=== PATIENT | female | born 1960 | race Two or more races ===

== ENCOUNTER 2021-07-22 10:58 | Inpatient (IN) | payer MEDICAID ==
[~2021-07-22] VITALS: Ht 170.2 cm; Wt 73.2 kg
[~2021-07-22 10:58] MED LIST: ASPI81CH43; GEMF600T; GLIPPOW9; LISI-716; MET25T; METF-372 PO; NITROSTAT; PATANOL OP; ROSU40TA; TRAM50TA2; VITA-55; [UNRECOGNIZED DRUG - CODE]
[2021-07-22] MEDS ORDERED: ASPirin 81 mg TAB PO ONE (11:30)
[2021-07-22 12:08] LABS: Basophils # (auto) 0 10 ^3/uL (0-0.2); Basophils % (auto) 0.5 % (0.0-2.0); Eosinophils # (auto) 0.1 10 ^3/uL (0-0.8); Eosinophils % (auto) 1.6 % (0.0-7.0); Hematocrit 35.7 % (36.0-46.0); Hemoglobin 11.8 g/dL (12.2-16.2); Lymphocytes # (auto) 1.9 10 ^3/uL (0.4-5.4); Lymphocytes % (auto) 22.1 % (10.0-50.0); Mean Corpuscular Hemoglobin 27.4 pg (28.0-32.0); Mean Corpuscular Volume 82.9 fL (80.0-100.0); Monocytes # (auto) 0.5 10 ^3/uL (0-1.3); Monocytes % (auto) 6.1 % (0.0-12.0); Neutrophils # (auto) 5.8 10 ^3/uL (1.6-8.6); Neutrophils % (auto) 69.7 % (37.0-80.0); Red Blood Cells 4.31 10^6/uL (4.0-5.20); Red Cell Distribution Width 14.9 % (11.8-14.3); White Blood Cell 8.4 10^3/uL (4.4-10.8)
[2021-07-22 12:25] LABS: Albumin 3.3 g/dL (3.4-5.0); Anion Gap 6 (5-15); Blood Urea Nitrogen 12 mg/dL (7-18); Calcium 9.1 mg/dL (8.5-10.1); Carbon Dioxide 26 mmol/L (21-32); Chloride 100 mmol/L (98-107); Glucose 242 mg/dL (74-106); Magnesium 1.8 mg/dL (1.6-2.6); Potassium 4.2 mmol/L (3.5-5.1); Sodium 132 mmol/L (136-145)
[2021-07-22 12:31] LABS: Alanine Aminotransferase 26 U/L (13-56); Alkaline Phosphatase 100 U/L (45-117); Aspartate Aminotransferase 20 U/L (15-37); BUN/Creatinine Ratio 15.4; Bilirubin, Total 0.3 mg/dL (0.2-1.0); GFR African American 97 mL/min; GFR Non-African American 80 mL/min; Total Protein 8.3 g/dL (6.4-8.2)
[2021-07-22] MEDS ORDERED: MORPHINE SULFATE INJECTION 2 MG/ML SYRG IV PRN ×3 (13:00→16:15)
[2021-07-22] MEDS ORDERED: NITROGLYCERIN 0.4 MG SL TAB SL PRN ×2 (13:00→16:15)
[2021-07-22] MEDS ORDERED: ISOS1TAB28 PO (14:31)
[2021-07-22] MEDS ORDERED: GLIP10TA9 PO (14:31)
[2021-07-22] MEDS ORDERED: CLOP75TA70 PO (14:31)
[2021-07-22] MEDS ORDERED: GABA300C10 PO (14:31)
[2021-07-22] MEDS ORDERED: ERTU5TAB PO (14:31)
[2021-07-22] MEDS ORDERED: MONT-8 PO (14:31)
[2021-07-22] MEDS ORDERED: LOSA-69 PO (14:31)
[2021-07-22] MEDS ORDERED: PANT40T PO (14:31)
[2021-07-22] MEDS ORDERED: NIFE1TAB31 PO (14:31)
[2021-07-22] MEDS ORDERED: DULA1INJ SC (14:31)
[2021-07-22] MEDS ORDERED: METOPROLOL TARTRATE 25 MG TAB PO ONE (15:45)
[2021-07-22] MEDS ORDERED: ATORVASTATIN 20 MG TAB PO ONE (15:45)
[2021-07-22] MEDS ORDERED: SODIUM CHLORIDE 0.9% 1,000 ML IV ONE (15:45)
[2021-07-22] MEDS ORDERED: MAGNESIUM SULFATE 1GM/100ML 100 ML IV ONE (15:45)
[2021-07-22] MEDS ORDERED: diphenhdrAMINE HCL 25 MG CAP PO ONE (16:00)
[2021-07-22] MEDS ORDERED: DEXTROSE (50%) 50ML SYRG IV PRN (16:00)
[2021-07-22] MEDS ORDERED: MONTELUKAST SODIUM 10 MG TAB PO ONE (16:00)
[2021-07-22] MEDS ORDERED: LORATADINE 10 MG TAB PO ONE (16:00)
[2021-07-22] MEDS ORDERED: ALUM & MAG HYDROX-SIMETH LIQ(MAALOX) 30 ML PO PRN (16:15)
[2021-07-22] MEDS ORDERED: DOCUSATE SOD 100 MG CAP PO PRN (16:15)
[2021-07-22] MEDS ORDERED: ONDANSETRON HCL 4 MG/2 ML VIAL IV PRN (16:15)
[2021-07-22 16:28] LABS: % Iron Saturation 11.5 % (15-50)
[2021-07-22 16:43] LABS: Folate (Folic Acid) > 24.00 ng/mL (5.38-24)
[2021-07-22] MEDS: ACCU-CHEK COMFORT CURVE STRIP VI SCH ×2 (17:00→22:00)
[2021-07-22] MEDS: InsuLIN REG 1unit/0.01ml Soln (100units/ml) SC SCH ×2 (17:00→22:00)
[2021-07-22] MEDS ORDERED: IPRATROPIUM BROM 0.5 MG/2.5ML INH SOL NEB SCH (18:00)
[2021-07-22] MEDS ORDERED: ACETAMINOPHEN 500 MG TAB PO ONE (18:00)
[2021-07-22] MEDS: FUROSEMIDE 20 MG/2 ML VIAL IV SCH (19:58)
[2021-07-22] MEDS: FAMOTIDINE (10MG/ML) 2ML VL IV SCH (21:23)
[2021-07-22] MEDS: POTASSIUM CHL 10 Meq TABLET PO SCH (22:00)
[2021-07-22] MEDS ORDERED: PENTOXIFYLLINE 400 MG ER TAB PO SCH (22:00)
[2021-07-22] MEDS: METOPROLOL TARTRATE 25 MG TAB PO SCH (22:00)
[2021-07-22] MEDS: CILOSTAZOL 100 MG TAB PO SCH (22:00)
[2021-07-22] MEDS: PENTOXIFYLLINE 400 MG ER TAB PO SCH (22:00)
[2021-07-22] MEDS: HYDROcodone-ACET 5/325MG TAB PO PRN (23:00)
[2021-07-23 00:47] LABS: Urine Bacteria NONE SEEN /hpf (None Seen); Urine Blood Negative /uL (Negative); Urine Hyaline Cast FEW /lpf (0 - 2); Urine Specific Gravity 1.005 (1.001-1.035); Urine WBC <1 /hpf (0 - 5)
[2021-07-23 00:56] LABS: Alcohol, Urine < 3.0 mg/dL (0-10); Amphetamine Screen, Urine NEGATIVE (NEGATIVE); Barbiturate Scree,Urine NEGATIVE (NEGATIVE); Benzodiazephine Screen, Urine NEGATIVE (NEGATIVE); Cannabinoid Screen, Urine NEGATIVE (NEGATIVE); Cocaine Screen, Urine NEGATIVE (NEGATIVE); Opiate Scree,Urine NEGATIVE (NEGATIVE); Phencyclidine Screen, Urine NEGATIVE (NEGATIVE)
[2021-07-23] MEDS: ACCU-CHEK COMFORT CURVE STRIP VI SCH ×3 (06:24→22:00)
[2021-07-23] MEDS: PENTOXIFYLLINE 400 MG ER TAB PO SCH ×3 (06:31→22:48)
[2021-07-23] MEDS: FUROSEMIDE 20 MG/2 ML VIAL IV SCH (06:31)
[2021-07-23] MEDS: InsuLIN REG 1unit/0.01ml Soln (100units/ml) SC SCH ×5 (06:33→22:00)
[2021-07-23 06:37] LABS: Basophils # (auto) 0 10 ^3/uL (0-0.2); Basophils % (auto) 0.4 % (0.0-2.0); Eosinophils # (auto) 0.1 10 ^3/uL (0-0.8); Eosinophils % (auto) 2.1 % (0.0-7.0); Hematocrit 33.1 % (36.0-46.0); Hemoglobin 11.1 g/dL (12.2-16.2); Lymphocytes # (auto) 2.8 10 ^3/uL (0.4-5.4); Lymphocytes % (auto) 42.8 % (10.0-50.0); Mean Corpuscular Hemoglobin 27.7 pg (28.0-32.0); Mean Corpuscular Hgb Conc. 33.4 g/dL (32.0-36.0); Monocytes # (auto) 0.5 10 ^3/uL (0-1.3); Monocytes % (auto) 7.1 % (0.0-12.0); Neutrophils # (auto) 3.1 10 ^3/uL (1.6-8.6); Neutrophils % (auto) 47.6 % (37.0-80.0); Red Blood Cells 3.99 10^6/uL (4.0-5.20); Red Cell Distribution Width 14.7 % (11.8-14.3); White Blood Cell 6.4 10^3/uL (4.4-10.8)
[2021-07-23] MEDS: HYDROcodone-ACET 5/325MG TAB PO PRN (06:42)
[2021-07-23 06:45] LABS: INR 1.02 (0.9-1.15); Partial Thromboplastin Time 25.5 sec (23.6-33.0)
[2021-07-23 06:46] LABS: Chloride 103 mmol/L (98-107); Potassium 3.8 mmol/L (3.5-5.1); Sodium 138 mmol/L (136-145)
[2021-07-23 07:03] LABS: Alanine Aminotransferase 24 U/L (13-56); Alkaline Phosphatase 89 U/L (45-117); Anion Gap 5 (5-15); Aspartate Aminotransferase 16 U/L (15-37); BUN/Creatinine Ratio 19.4; Bilirubin, Total 0.3 mg/dL (0.2-1.0); Blood Urea Nitrogen 14 mg/dL (7-18); Calcium 8.9 mg/dL (8.5-10.1); Carbon Dioxide 30 mmol/L (21-32); GFR African American 106 mL/min; GFR Non-African American 88 mL/min; Glucose 177 mg/dL (74-106); Magnesium 1.9 mg/dL (1.6-2.6); Total Protein 7.6 g/dL (6.4-8.2)
[2021-07-23] MEDS: ISOSORBIDE MONONITRATE ER 60 MG TAB PO SCH (10:00)
[2021-07-23] MEDS: METOPROLOL TARTRATE 25 MG TAB PO SCH (10:00)
[2021-07-23] MEDS: CILOSTAZOL 100 MG TAB PO SCH ×2 (10:00→22:48)
[2021-07-23] MEDS: LOSARTAN POTASSIUM 25 MG TAB PO SCH (10:00)
[2021-07-23] MEDS: FAMOTIDINE (10MG/ML) 2ML VL IV SCH (10:00)
[2021-07-23] MEDS: POTASSIUM CHL 10 Meq TABLET PO SCH (10:00)
[2021-07-23] MEDS: ASPirin 81 mg TAB PO SCH (10:00)
[2021-07-23] MEDS: ENOXAPARIN SOD 40 MG/0.4 ML SYRINGE SC SCH (10:00)
[2021-07-23] MEDS ORDERED: CLOPIDOGREL BISULFATE 75 MG TAB PO ONE (11:15)
[2021-07-23] MEDS: ACETAMINOPHEN 325 MG TAB PO PRN (17:54)
[2021-07-23 20:00] VITALS: BP 125/67
[2021-07-23] MEDS: ATORVASTATIN 20 MG TAB PO SCH (22:00)
[2021-07-23 22:12] VITALS: BP 125/67
[2021-07-23] MEDS: MONTELUKAST SODIUM 10 MG TAB PO SCH (22:48)
[2021-07-24] MEDS: ACETAMINOPHEN 325 MG TAB PO PRN ×3 (03:12→15:12)
[2021-07-24 05:12] VITALS: BP 134/54
[2021-07-24] MEDS: PENTOXIFYLLINE 400 MG ER TAB PO SCH ×3 (05:51→23:08)
[2021-07-24] MEDS: ACCU-CHEK COMFORT CURVE STRIP VI SCH ×4 (06:48→22:00)
[2021-07-24] MEDS: InsuLIN REG 1unit/0.01ml Soln (100units/ml) SC SCH ×5 (06:49→22:00)
[2021-07-24 08:00] VITALS: BP 134/54
[2021-07-24 09:00] VITALS: BP 129/68
[2021-07-24] MEDS: ASPirin 81 mg TAB PO SCH (10:05)
[2021-07-24] MEDS: LOSARTAN POTASSIUM 25 MG TAB PO SCH (10:07)
[2021-07-24] MEDS: ISOSORBIDE MONONITRATE ER 60 MG TAB PO SCH (10:08)
[2021-07-24] MEDS: CLOPIDOGREL BISULFATE 75 MG TAB PO SCH (10:08)
[2021-07-24] MEDS: CILOSTAZOL 100 MG TAB PO SCH ×2 (10:09→23:08)
[2021-07-24] MEDS: PANTOPRAZOLE 40 MG TAB PO SCH (10:09)
[2021-07-24] MEDS: ENOXAPARIN SOD 40 MG/0.4 ML SYRINGE SC SCH (10:10)
[2021-07-24] MEDS: glipiZIDE 5 MG TAB PO SCH ×2 (11:36→17:40)
[2021-07-24 17:06] VITALS: BP 135/56
[2021-07-24 20:00] VITALS: BP 137/62
[2021-07-24 22:00] VITALS: BP 137/62
[2021-07-24] MEDS: ATORVASTATIN 20 MG TAB PO SCH (22:00)
[2021-07-24] MEDS: MONTELUKAST SODIUM 10 MG TAB PO SCH (22:00)
[2021-07-25] MEDS: ACETAMINOPHEN 325 MG TAB PO PRN (01:41)
[2021-07-25] MEDS: LORazepam 0.5 MG TAB PO PRN (01:47)
[2021-07-25 05:00] VITALS: BP 131/51
[2021-07-25] MEDS: PENTOXIFYLLINE 400 MG ER TAB PO SCH ×3 (06:30→21:38)
[2021-07-25] MEDS: glipiZIDE 5 MG TAB PO SCH ×2 (06:37→17:24)
[2021-07-25] MEDS: ACCU-CHEK COMFORT CURVE STRIP VI SCH ×4 (06:37→21:40)
[2021-07-25] MEDS: InsuLIN REG 1unit/0.01ml Soln (100units/ml) SC SCH ×4 (06:37→21:48)
[2021-07-25 09:00] VITALS: BP 150/68
[2021-07-25] MEDS: ISOSORBIDE MONONITRATE ER 60 MG TAB PO SCH (10:00)
[2021-07-25] MEDS: ASPirin 81 mg TAB PO SCH (10:07)
[2021-07-25] MEDS: CLOPIDOGREL BISULFATE 75 MG TAB PO SCH (10:08)
[2021-07-25] MEDS: ENOXAPARIN SOD 40 MG/0.4 ML SYRINGE SC SCH (10:08)
[2021-07-25] MEDS: LOSARTAN POTASSIUM 25 MG TAB PO SCH (10:08)
[2021-07-25] MEDS: CILOSTAZOL 100 MG TAB PO SCH ×2 (10:08→21:38)
[2021-07-25] MEDS: PANTOPRAZOLE 40 MG TAB PO SCH (10:08)
[2021-07-25 13:00] VITALS: BP 125/57
[2021-07-25] MEDS ORDERED: ACETAMINOPHEN 325 MG TAB PO PRN (14:45)
[2021-07-25 17:00] VITALS: BP 120/64
[2021-07-25] MEDS: MONTELUKAST SODIUM 10 MG TAB PO SCH (21:33)
[2021-07-25] MEDS: ATORVASTATIN 20 MG TAB PO SCH (21:34)
[2021-07-25 22:00] VITALS: BP 137/61
[2021-07-25] MEDS: SODIUM CHLORIDE 0.9% 1,000 ML IV SCH (22:26)
[2021-07-26 05:00] VITALS: BP 148/70
[2021-07-26] MEDS: PENTOXIFYLLINE 400 MG ER TAB PO SCH ×3 (05:35→20:35)
[2021-07-26] MEDS: LEVOTHYROXINE SODIUM 25 MCG TAB PO SCH (05:35)
[2021-07-26] MEDS: glipiZIDE 5 MG TAB PO SCH ×2 (05:35→18:48)
[2021-07-26] MEDS: InsuLIN REG 1unit/0.01ml Soln (100units/ml) SC SCH ×4 (05:36→21:25)
[2021-07-26] MEDS: ACCU-CHEK COMFORT CURVE STRIP VI SCH ×4 (05:36→21:24)
[2021-07-26 07:52] LABS: Albumin 3.1 g/dL (3.4-5.0); Calcium 9.1 mg/dL (8.5-10.1); Potassium 3.7 mmol/L (3.5-5.1)
[2021-07-26 07:55] LABS: BUN/Creatinine Ratio 15.1; Bilirubin, Total 0.2 mg/dL (0.2-1.0); Total Protein 7.9 g/dL (6.4-8.2)
[2021-07-26 08:00] VITALS: BP 141/66
[2021-07-26 08:05] LABS: Basophils # (auto) 0 10 ^3/uL (0-0.2); Basophils % (auto) 0.6 % (0.0-2.0); Eosinophils # (auto) 0.1 10 ^3/uL (0-0.8); Eosinophils % (auto) 2.1 % (0.0-7.0); Hematocrit 35.4 % (36.0-46.0); Hemoglobin 11.7 g/dL (12.2-16.2); Lymphocytes # (auto) 2.6 10 ^3/uL (0.4-5.4); Lymphocytes % (auto) 48.7 % (10.0-50.0); Mean Corpuscular Hemoglobin 27.6 pg (28.0-32.0); Mean Corpuscular Hgb Conc. 33.1 g/dL (32.0-36.0); Mean Corpuscular Volume 83.4 fL (80.0-100.0); Monocytes # (auto) 0.4 10 ^3/uL (0-1.3); Monocytes % (auto) 6.9 % (0.0-12.0); Neutrophils # (auto) 2.2 10 ^3/uL (1.6-8.6); Neutrophils % (auto) 41.7 % (37.0-80.0); Red Blood Cells 4.24 10^6/uL (4.0-5.20); Red Cell Distribution Width 14.4 % (11.8-14.3); White Blood Cell 5.3 10^3/uL (4.4-10.8)
[2021-07-26] MEDS ORDERED: METOPROLOL SUCCINATE XL 50 MG TAB PO SCH (10:00)
[2021-07-26] MEDS: ENOXAPARIN SOD 40 MG/0.4 ML SYRINGE SC SCH (10:00)
[2021-07-26] MEDS: ASPirin 81 mg TAB PO SCH (10:19)
[2021-07-26] MEDS: PANTOPRAZOLE 40 MG TAB PO SCH (10:19)
[2021-07-26] MEDS: CLOPIDOGREL BISULFATE 75 MG TAB PO SCH (10:20)
[2021-07-26] MEDS: CILOSTAZOL 100 MG TAB PO SCH ×2 (10:20→20:35)
[2021-07-26] MEDS: LOSARTAN POTASSIUM 25 MG TAB PO SCH (10:21)
[2021-07-26] MEDS: ISOSORBIDE MONONITRATE ER 60 MG TAB PO SCH (10:22)
[2021-07-26 12:00] VITALS: BP 143/74
[2021-07-26 13:00] VITALS: BP 141/66
[2021-07-26 14:31] VITALS: BP 116/72
[2021-07-26] MEDS ORDERED: LIDOCAINE 2%HCL (LOCAL ANESTH.) INJ 20ML MDV ONE (15:41)
[2021-07-26] MEDS ORDERED: MIDAZOLAM HCL 2MG/2ML 2ml VIAL (1mg/ml) ONE (15:58)
[2021-07-26] MEDS ORDERED: fentaNYL CITRATE 100 MCG/2 ML VL ONE (15:59)
[2021-07-26] MEDS: SODIUM CHLORIDE 0.9% 1,000 ML IV SCH (18:33)
[2021-07-26] MEDS: MONTELUKAST SODIUM 10 MG TAB PO SCH (20:34)
[2021-07-26] MEDS: ATORVASTATIN 20 MG TAB PO SCH (20:34)
[2021-07-26] MEDS: LORazepam 0.5 MG TAB PO PRN (20:35)
[2021-07-26] MEDS: IBUPROFEN 400 MG TAB PO PRN (20:36)
[2021-07-26 22:00] VITALS: BP 134/72
[2021-07-27 05:00] VITALS: BP 147/55
[2021-07-27] MEDS: ACCU-CHEK COMFORT CURVE STRIP VI SCH ×2 (05:51→11:29)
[2021-07-27] MEDS: InsuLIN REG 1unit/0.01ml Soln (100units/ml) SC SCH ×2 (05:52→11:43)
[2021-07-27] MEDS: PENTOXIFYLLINE 400 MG ER TAB PO SCH (06:15)
[2021-07-27] MEDS: LEVOTHYROXINE SODIUM 25 MCG TAB PO SCH (06:15)
[2021-07-27] MEDS: glipiZIDE 5 MG TAB PO SCH (06:15)
[2021-07-27 09:00] VITALS: BP 121/53
[2021-07-27] MEDS: ASPirin 81 mg TAB PO SCH (09:57)
[2021-07-27] MEDS: LOSARTAN POTASSIUM 25 MG TAB PO SCH (09:58)
[2021-07-27] MEDS: PANTOPRAZOLE 40 MG TAB PO SCH (09:59)
[2021-07-27] MEDS: ISOSORBIDE MONONITRATE ER 60 MG TAB PO SCH (09:59)
[2021-07-27] MEDS: CLOPIDOGREL BISULFATE 75 MG TAB PO SCH (09:59)
[2021-07-27] MEDS: CILOSTAZOL 100 MG TAB PO SCH (09:59)
[2021-07-27] MEDS: ENOXAPARIN SOD 40 MG/0.4 ML SYRINGE SC SCH (10:00)
[2021-07-27 10:28] LABS: Calcium 8.4 mg/dL (8.5-10.1); Potassium 3.5 mmol/L (3.5-5.1)
[2021-07-27 10:31] LABS: BUN/Creatinine Ratio 14.5
[2021-07-27] MEDS ORDERED: GLIP10TA9 PO (10:39)
[2021-07-27] MEDS ORDERED: ATOR-47 PO (10:39)
[2021-07-27] MEDS: IBUPROFEN 400 MG TAB PO PRN (11:35)
[2021-07-27 12:38] VITALS: BP 124/54
[2021-07-27 13:26] VITALS: BP 121/63
== END 2021-07-27 15:20 | disposition home or self-care (01) | DRG 175 ==
LOC: ER 10:58 → TELE 12:54 → TELE-WESTW 07-23 16:22
PROVIDERS: ADMIT Hospitalist; ATTEND Internal Medicine
PROC: 027034Z Dilation of Coronary Artery, One Artery with Drug-eluting Intraluminal Device, Percutaneous Approach (ICD-10-PCS; principal; 2021-07-26)
PROC: 047K3ZZ Dilation of Right Femoral Artery, Percutaneous Approach (ICD-10-PCS; 2021-07-26)
PROC: 4A023N7 Measurement of Cardiac Sampling and Pressure, Left Heart, Percutaneous Approach (ICD-10-PCS; 2021-07-26)
PROC: B2131ZZ Fluoroscopy of Multiple Coronary Artery Bypass Grafts using Low Osmolar Contrast (ICD-10-PCS; 2021-07-26)
PROC: B2151ZZ Fluoroscopy of Left Heart using Low Osmolar Contrast (ICD-10-PCS; 2021-07-26)
PROC: B2181ZZ Fluoroscopy of Left Internal Mammary Bypass Graft using Low Osmolar Contrast (ICD-10-PCS; 2021-07-26)
PROC: B41G1ZZ Fluoroscopy of Left Lower Extremity Arteries using Low Osmolar Contrast (ICD-10-PCS; 2021-07-26)
PROC: B41F1ZZ Fluoroscopy of Right Lower Extremity Arteries using Low Osmolar Contrast (ICD-10-PCS; 2021-07-26)
DX: E11.51 Type 2 diabetes mellitus with diabetic peripheral angiopathy without gangrene (principal); I24.9 Acute ischemic heart disease, unspecified; E44.0 Moderate protein-calorie malnutrition; D64.9 Anemia, unspecified; E03.9 Hypothyroidism, unspecified; E11.65 Type 2 diabetes mellitus with hyperglycemia; Z20.822 Contact with and (suspected) exposure to COVID-19; E78.5 Hyperlipidemia, unspecified; F32.A Depression, unspecified; F41.9 Anxiety disorder, unspecified; I25.10 Atherosclerotic heart disease of native coronary artery without angina pectoris; J44.9 Chronic obstructive pulmonary disease, unspecified; I10 Essential (primary) hypertension; K21.9 Gastro-esophageal reflux disease without esophagitis; I25.5 Ischemic cardiomyopathy; Z68.24 Body mass index [BMI] 24.0-24.9, adult; I65.29 Occlusion and stenosis of unspecified carotid artery; Z88.1 Allergy status to other antibiotic agents; Z88.7 Allergy status to serum and vaccine; Z88.8 Allergy status to other drugs, medicaments and biological substances; Z88.5 Allergy status to narcotic agent; F17.200 Nicotine dependence, unspecified, uncomplicated; Z71.6 Tobacco abuse counseling; Z79.02 Long term (current) use of antithrombotics/antiplatelets; Z90.710 Acquired absence of both cervix and uterus; Z95.1 Presence of aortocoronary bypass graft; Z98.61 Coronary angioplasty status; Z98.62 Peripheral vascular angioplasty status; Z79.899 Other long term (current) drug therapy; Z90.49 Acquired absence of other specified parts of digestive tract
CPT/HCPCS: 36415; 37224; 70450; 71045; 75716; 80048; 80053; 80307; 81001; 82607; 82746; 82962; 83036; 83540; 83550; 83615; 83735; 83880; 84100; 84439; 84443; 84484; 85025; 85045; 85379; 85610; 85730; 86850; 86900; 86901; 87040; 87086; 87426; 92928; 93005; 93306; 93459; 93886; 93925; 93970; 96372; 99152; 99153; C1874; C1887; G0378; J1815; J2250; J3490

== ENCOUNTER 2021-08-16 02:53 | Emergency (ER) | payer MEDICAID ==
[~2021-08-16] VITALS: Ht 170.2 cm; Wt 69.9 kg
[~2021-08-16 02:53] MED LIST changes: -ASPI81CH43; +ATOR-47 PO; +CLOP75TA70 PO; +DULA1INJ SC; +ERTU5TAB PO; +GABA300C10 PO; -GEMF600T; +GLIP10TA9 PO; -GLIPPOW9; +ISOS1TAB28 PO; -LISI-716; +LOSA-69 PO; -MET25T; +MONT-8 PO; +NIFE1TAB31 PO; -NITROSTAT; +PANT40T PO; -PATANOL OP; -ROSU40TA; -TRAM50TA2; -VITA-55; -[UNRECOGNIZED DRUG - CODE]
[2021-08-16 03:53] LABS: Basophils # (auto) 0 10 ^3/uL (0-0.2); Basophils % (auto) 0.4 % (0.0-2.0); Eosinophils # (auto) 0.2 10 ^3/uL (0-0.8); Eosinophils % (auto) 1.7 % (0.0-7.0); Hematocrit 34.6 % (36.0-46.0); Hemoglobin 11.2 g/dL (12.2-16.2); Lymphocytes # (auto) 3.6 10 ^3/uL (0.4-5.4); Mean Corpuscular Hemoglobin 27.1 pg (28.0-32.0); Mean Corpuscular Hgb Conc. 32.5 g/dL (32.0-36.0); Mean Corpuscular Volume 83.4 fL (80.0-100.0); Monocytes # (auto) 0.6 10 ^3/uL (0-1.3); Monocytes % (auto) 6.9 % (0.0-12.0); Neutrophils # (auto) 4.8 10 ^3/uL (1.6-8.6); Nucleated Red Blood Cells % 0.1 %; Red Blood Cells 4.15 10^6/uL (4.0-5.20); Red Cell Distribution Width 14.6 % (11.8-14.3); White Blood Cell 9.2 10^3/uL (4.4-10.8)
[2021-08-16 04:16] LABS: Potassium 4.6 mmol/L (3.5-5.1)
[2021-08-16 04:23] LABS: Albumin 3.3 g/dL (3.4-5.0); BUN/Creatinine Ratio 16.5; Bilirubin, Total 0.3 mg/dL (0.2-1.0); Calcium 9.6 mg/dL (8.5-10.1); Total Protein 8.3 g/dL (6.4-8.2)
[2021-08-16] MEDS ORDERED: ACETAMINOPHEN 325 MG TAB PO ONE (05:30)
[2021-08-16] MEDS ORDERED: SODIUM CHLORIDE 0.9% 500 ML IV ONE (05:30)
[2021-08-16] MEDS ORDERED: METOCLOPRAMIDE HCL 5MG/ml INJ 2ml VIAL IV ONE (05:30)
[2021-08-16] MEDS ORDERED: cloNIDine HCL 0.1 MG TAB PO ONE (06:45)
[2021-08-16] MEDS ORDERED: HYDROcodone-ACET 5/325MG TAB PO ONE (06:45)
[2021-08-16 08:43] VITALS: BP 150/46
== END 2021-08-16 08:53 | disposition home or self-care (01) ==
LOC: ER 02:53
DX: I10 Essential (primary) hypertension (principal); R51.9 Headache, unspecified; R11.0 Nausea; E11.9 Type 2 diabetes mellitus without complications; E78.5 Hyperlipidemia, unspecified; I25.2 Old myocardial infarction; Z90.49 Acquired absence of other specified parts of digestive tract; Z90.710 Acquired absence of both cervix and uterus; Z95.1 Presence of aortocoronary bypass graft; Z79.01 Long term (current) use of anticoagulants; Z79.899 Other long term (current) drug therapy; Z88.5 Allergy status to narcotic agent; Z88.8 Allergy status to other drugs, medicaments and biological substances
CPT/HCPCS: 36415; 70450; 80053; 82962; 85025; 93005; 96361; 96374; 99285; J2765

== ENCOUNTER → 2021-10-26 | Outpatient (CLI) | payer MEDICAID ==
[~2021-10-26] MED LIST changes: +ADENOSINE 90 MG/30 ML INJ IV ONE
== END | disposition home or self-care (01) ==
LOC: Rad HDHVI 09:01
PROVIDERS: ATTEND Internal Medicine Cardiovascular Disease
DX: I36.1 Nonrheumatic tricuspid (valve) insufficiency (principal); I25.810 Atherosclerosis of coronary artery bypass graft(s) without angina pectoris; E78.5 Hyperlipidemia, unspecified; Z95.1 Presence of aortocoronary bypass graft
CPT/HCPCS: 93306

== ENCOUNTER → 2021-10-27 | Outpatient (CLI) | payer MEDICAID ==
[~2021-10-27] VITALS: Ht 170.2 cm; Wt 74.4 kg
[~2021-10-27] MED LIST changes: +ADENOSINE 62 MG in GIVE UN-DILUTED 0 ML IV ONE; -ADENOSINE 90 MG/30 ML INJ IV ONE
== END | disposition home or self-care (01) ==
LOC: Rad HDHVI 12:56
PROVIDERS: ATTEND Internal Medicine Cardiovascular Disease
DX: I25.10 Atherosclerotic heart disease of native coronary artery without angina pectoris (principal); I10 Essential (primary) hypertension; E78.5 Hyperlipidemia, unspecified; E11.9 Type 2 diabetes mellitus without complications; R42 Dizziness and giddiness; R07.89 Other chest pain; Z95.1 Presence of aortocoronary bypass graft; Z82.49 Family history of ischemic heart disease and other diseases of the circulatory system
CPT/HCPCS: 78452; 93005; 96374; 96375; A9500; J0153

== ENCOUNTER → 2021-12-27 | Outpatient (CLI) | payer MEDICAID ==
[~2021-12-27] MED LIST changes: -ADENOSINE 62 MG in GIVE UN-DILUTED 0 ML IV ONE; +ASPI-543 PO; +BACL10TA PO
[2021-12-27 09:17] VITALS: BP 125/47
[2021-12-27 09:30] VITALS: BP 139/50
[2021-12-27 11:35] LABS: Basophils # (auto) 0 10 ^3/uL (0-0.2); Basophils % (auto) 0.5 % (0.0-2.0); Eosinophils # (auto) 0.2 10 ^3/uL (0-0.8); Eosinophils % (auto) 2.7 % (0.0-7.0); Hematocrit 33.9 % (36.0-46.0); Hemoglobin 11.7 g/dL (12.2-16.2); Lymphocytes # (auto) 2.9 10 ^3/uL (0.4-5.4); Lymphocytes % (auto) 43.6 % (10.0-50.0); Mean Corpuscular Hemoglobin 29.6 pg (28.0-32.0); Mean Corpuscular Hgb Conc. 34.6 g/dL (32.0-36.0); Mean Corpuscular Volume 85.5 fL (80.0-100.0); Monocytes # (auto) 0.5 10 ^3/uL (0-1.3); Monocytes % (auto) 7.2 % (0.0-12.0); Neutrophils # (auto) 3.1 10 ^3/uL (1.6-8.6); Nucleated Red Blood Cells % 0.1 %; Red Blood Cells 3.97 10^6/uL (4.0-5.20); Red Cell Distribution Width 14.8 % (11.8-14.3); White Blood Cell 6.6 10^3/uL (4.4-10.8)
[2021-12-27 11:47] LABS: INR 0.94 (0.9-1.15); Partial Thromboplastin Time 25.6 sec (23.6-33.0)
== END | disposition home or self-care (01) ==
LOC: Rad HDHVI 09:05
PROVIDERS: ATTEND Internal Medicine Cardiovascular Disease
DX: Z01.812 Encounter for preprocedural laboratory examination (principal); I11.0 Hypertensive heart disease with heart failure; I50.9 Heart failure, unspecified; R94.31 Abnormal electrocardiogram [ECG] [EKG]; I25.10 Atherosclerotic heart disease of native coronary artery without angina pectoris; E11.9 Type 2 diabetes mellitus without complications; M47.814 Spondylosis without myelopathy or radiculopathy, thoracic region; Z95.1 Presence of aortocoronary bypass graft
CPT/HCPCS: 36415; 71046; 85025; 85610; 85730; 93005; G0463

== ENCOUNTER 2021-12-29 09:50 | Day surgery (SDC) | payer MEDICAID ==
[2021-12-27 11:57] LABS: BUN/Creatinine Ratio 17.6; Potassium 4.3 mmol/L (3.5-5.1)
[~2021-12-29] VITALS: Ht 170.2 cm; Wt 69.9 kg
[~2021-12-29 09:50] MED LIST changes: -ATOR-47 PO; -ERTU5TAB PO
[2021-12-29] MEDS ORDERED: LIDOCAINE 2%HCL (LOCAL ANESTH.) INJ 10ml MDV ONE (10:31)
[2021-12-29] MEDS ORDERED: HEPARIN IN NS 1000Units/500mL 1,500 ML ONE (10:32)
[2021-12-29] MEDS ORDERED: IOHEXOL 350 MG/ML 100ML IJ ONE (10:32)
[2021-12-29] MEDS ORDERED: MIDAZOLAM HCL 2MG/2ML 2ml VIAL (1mg/ml) ONE (10:56)
[2021-12-29] MEDS ORDERED: fentaNYL CITRATE 100 MCG/2 ML VL ONE (10:56)
[2021-12-29] MEDS ORDERED: ANGIOMAX 250 MG VIAL IV ONE (10:56)
[2021-12-29] MEDS ORDERED: SODIUM CHL 0.9% 50 ML ONE (10:56)
[2021-12-29] MEDS ORDERED: NITROGLYCERIN 0.4MG/DOSE SPRAY 4.9GM ONE (13:50)
== END 2021-12-29 14:25 | disposition home or self-care (01) ==
LOC: CATH 09:50
PROVIDERS: ATTEND Internal Medicine Cardiovascular Disease
DX: E11.51 Type 2 diabetes mellitus with diabetic peripheral angiopathy without gangrene (principal); I70.202 Unspecified atherosclerosis of native arteries of extremities, left leg; E11.42 Type 2 diabetes mellitus with diabetic polyneuropathy; I77.1 Stricture of artery; E78.5 Hyperlipidemia, unspecified; I25.2 Old myocardial infarction; I11.0 Hypertensive heart disease with heart failure; I50.9 Heart failure, unspecified; G47.30 Sleep apnea, unspecified; F32.9 Major depressive disorder, single episode, unspecified; F41.9 Anxiety disorder, unspecified; Z95.5 Presence of coronary angioplasty implant and graft; Z90.710 Acquired absence of both cervix and uterus; Z98.891 History of uterine scar from previous surgery; Z98.890 Other specified postprocedural states; Z79.82 Long term (current) use of aspirin; Z79.899 Other long term (current) drug therapy; Z82.49 Family history of ischemic heart disease and other diseases of the circulatory system; Z20.822 Contact with and (suspected) exposure to COVID-19
CPT/HCPCS: 36415; 37227; 80048; C1725; C1760; C1761; C1769; C1894; J0583; J1644; J2001; J2250; J3010; J7030; Q9967; U0003; 37229; 99152; 99153

== ENCOUNTER → 2022-08-03 | Outpatient (CLI) | payer MEDICAID ==
[2022-08-03 12:51] LABS: Calcium 9.1 mg/dL (8.5-10.1); Potassium 4.6 mmol/L (3.5-5.1)
== END | disposition home or self-care (01) ==
LOC: LAB 12:09
PROVIDERS: ATTEND Internal Medicine Interventional Cardiology
DX: I11.0 Hypertensive heart disease with heart failure (principal); I50.43 Acute on chronic combined systolic (congestive) and diastolic (congestive) heart failure; I73.9 Peripheral vascular disease, unspecified; E78.5 Hyperlipidemia, unspecified; I25.2 Old myocardial infarction; Z95.1 Presence of aortocoronary bypass graft
CPT/HCPCS: 36415; 80048

== ENCOUNTER 2022-12-22 06:15 | Day surgery (SDC) | payer MEDICAID ==
[2022-12-19 11:53] LABS: Basophils # (auto) 0 10 ^3/uL (0-0.2); Basophils % (auto) 0.6 % (0.0-2.0); Eosinophils # (auto) 0.1 10 ^3/uL (0-0.8); Eosinophils % (auto) 1.8 % (0.0-7.0); Hematocrit 33.1 % (36.0-46.0); Hemoglobin 10.9 g/dL (12.2-16.2); Lymphocytes % (auto) 40.4 % (10.0-50.0); Mean Corpuscular Hemoglobin 28.7 pg (28.0-32.0); Mean Corpuscular Hgb Conc. 33.1 g/dL (32.0-36.0); Mean Corpuscular Volume 86.6 fL (80.0-100.0); Monocytes # (auto) 0.7 10 ^3/uL (0-1.3); Neutrophils # (auto) 3.5 10 ^3/uL (1.6-8.6); Neutrophils % (auto) 47.2 % (37.0-80.0); Nucleated Red Blood Cells % 0.1 %; Red Blood Cells 3.82 10^6/uL (4.0-5.20); Red Cell Distribution Width 16.8 % (11.8-14.3); White Blood Cell 7.3 10^3/uL (4.4-10.8)
[2022-12-19 12:19] LABS: Urine Bacteria NONE SEEN /hpf (None Seen); Urine Blood Negative /uL (Negative); Urine Specific Gravity 1.009 (1.001-1.035); Urine WBC <1 /hpf (0 - 5)
[2022-12-19 12:28] LABS: INR 0.93 (0.9-1.15)
[2022-12-19 12:47] LABS: Albumin 3.8 g/dL (3.4-5.0); Calcium 9.4 mg/dL (8.5-10.1); Potassium 4.4 mmol/L (3.5-5.1)
[2022-12-19 12:50] LABS: BUN/Creatinine Ratio 27.6 (10.0-20.0)
[2022-12-19 12:52] LABS: Bilirubin, Total 0.2 mg/dL (0.2-1.0); Total Protein 8.3 g/dL (6.4-8.2)
[~2022-12-22] VITALS: Ht 170.2 cm; Wt 72.6 kg
[~2022-12-22 06:15] MED LIST changes: -BACL10TA PO; -DULA1INJ SC; -GABA300C10 PO; -LOSA-69 PO; -METF-372 PO; -MONT-8 PO; -PANT40T PO
[2022-12-22] MEDS ORDERED: LIDOCAINE W/ EPINEPHRINE 2% INJ 20ML VIAL ONE (06:47)
[2022-12-22] MEDS ORDERED: DexAMETHasone SOD PHOS 4 MG/1ML SDV INJ ONE (06:47)
[2022-12-22] MEDS ORDERED: BUPIVACAINE 0.5% P/F INJ 10 ML VIAL ONE (06:47)
[2022-12-22] MEDS ORDERED: ceFAZolin 1GM/50ML 100 ML IV ONE (07:11)
[2022-12-22] MEDS ORDERED: ONDANSETRON HCL 4 MG/2 ML VIAL ONE (07:27)
[2022-12-22] MEDS ORDERED: LIDOCAINE 2% (LOCAL ANESTH.) PF 5ml SDV ONE (07:27)
[2022-12-22] MEDS ORDERED: GLYCOPYRROLATE 0.2 MG/ML 1ML VIAL ONE (07:27)
[2022-12-22] MEDS ORDERED: DexAMETHasone SOD PHOS 10MG/1ML VIAL INJ ONE (07:27)
[2022-12-22] MEDS ORDERED: KETOROLAC TROMETH 30 MG/ML 1ML VIAL ONE (07:27)
[2022-12-22] MEDS ORDERED: PROPOFOL 10 MG/ML 20 ML IV ONE ×4 (07:27→08:56)
[2022-12-22] MEDS ORDERED: TRAM50TA2 PO ×2 (09:42)
[2022-12-22] MEDS ORDERED: HYDR-4902 PO ×2 (09:42)
[2022-12-22] MEDS ORDERED: AUG875T PO ×2 (09:42)
[2022-12-22 10:00] VITALS: BP 167/50
== END 2022-12-22 10:18 | disposition home or self-care (01) ==
LOC: SUR 06:15
PROVIDERS: ATTEND Student in an Organized Health Care Education/Training Program
DX: M20.12 Hallux valgus (acquired), left foot (principal); E11.51 Type 2 diabetes mellitus with diabetic peripheral angiopathy without gangrene; I10 Essential (primary) hypertension; E03.9 Hypothyroidism, unspecified; Z79.899 Other long term (current) drug therapy; Z79.84 Long term (current) use of oral hypoglycemic drugs; Z95.5 Presence of coronary angioplasty implant and graft; Z20.822 Contact with and (suspected) exposure to COVID-19; M89.8X7 Other specified disorders of bone, ankle and foot; M20.41 Other hammer toe(s) (acquired), right foot; M20.42 Other hammer toe(s) (acquired), left foot
CPT/HCPCS: 28298; 36415; 73620; 73630; 76000; 80053; 81001; 82962; 85025; 85610; 85730; C1713; J0690; J1100; J1885; J2001; J2405; J2704; L3260; U0003; J3490

== ENCOUNTER 2023-01-05 09:50 | Emergency (ER) | payer MEDICAID ==
[~2023-01-05] VITALS: Ht 170.2 cm; Wt 72.7 kg
[~2023-01-05 09:50] MED LIST changes: +AUG875T PO; +HYDR-4902 PO; +TRAM50TA2 PO
[2023-01-05 10:30] VITALS: BP 139/91
[2023-01-05] MEDS ORDERED: ACET-1080 PO (11:12)
== END 2023-01-05 11:30 | disposition home or self-care (01) ==
LOC: ER 09:50
DX: S00.83XA Contusion of other part of head, initial encounter (principal); E11.9 Type 2 diabetes mellitus without complications; E78.5 Hyperlipidemia, unspecified; I10 Essential (primary) hypertension; I25.2 Old myocardial infarction; Z90.49 Acquired absence of other specified parts of digestive tract; Z90.710 Acquired absence of both cervix and uterus; V87.8XXA Person injured in other specified noncollision transport accidents involving motor vehicle (traffic), initial encounter; Y93.89 Activity, other specified; Y92.89 Other specified places as the place of occurrence of the external cause; Y99.8 Other external cause status
CPT/HCPCS: 70450; 70486

== ENCOUNTER 2023-01-13 10:54 | Inpatient (IN) | payer MEDICAID ==
[~2023-01-13] VITALS: Ht 170.2 cm; Wt 74.4 kg
[~2023-01-13 10:54] MED LIST changes: +ACET-1080 PO
[2023-01-13] MEDS ORDERED: PIPERACILLIN-TAZOB 3.375GM 100 ML IV ONE (11:45)
[2023-01-13] MEDS ORDERED: VANCOMYCIN 1GM/250ML 250 ML IV ONE (11:45)
[2023-01-13 11:46] LABS: Basophils # (auto) 0.1 10 ^3/uL (0-0.2); Basophils % (auto) 1.1 % (0.0-2.0); Eosinophils # (auto) 0.2 10 ^3/uL (0-0.8); Eosinophils % (auto) 3.1 % (0.0-7.0); Hemoglobin 11.3 g/dL (12.2-16.2); Mean Corpuscular Hemoglobin 28.7 pg (28.0-32.0); Mean Corpuscular Hgb Conc. 33.2 g/dL (32.0-36.0); Mean Corpuscular Volume 86.5 fL (80.0-100.0); Monocytes # (auto) 0.4 10 ^3/uL (0-1.3); Monocytes % (auto) 6.1 % (0.0-12.0); Neutrophils # (auto) 3.5 10 ^3/uL (1.6-8.6); Neutrophils % (auto) 56.7 % (37.0-80.0); Nucleated Red Blood Cells % 0.1 %; Red Blood Cells 3.93 10^6/uL (4.0-5.20); Red Cell Distribution Width 17.1 % (11.8-14.3); White Blood Cell 6.1 10^3/uL (4.4-10.8)
[2023-01-13 12:30] LABS: Albumin 3.6 g/dL (3.4-5.0); Calcium 9.6 mg/dL (8.5-10.1); Potassium 4.4 mmol/L (3.5-5.1)
[2023-01-13 12:35] LABS: BUN/Creatinine Ratio 22.1 (10.0-20.0); Bilirubin, Total 0.2 mg/dL (0.2-1.0); Total Protein 7.9 g/dL (6.4-8.2)
[2023-01-13] MEDS ORDERED: DOCUSATE SOD 100 MG CAP PO PRN (15:45)
[2023-01-13] MEDS ORDERED: VANCOMYCIN PER PHARMACY 0 MG IV SCH (15:45)
[2023-01-13] MEDS ORDERED: ONDANSETRON HCL 4 MG/2 ML VIAL IV PRN (15:45)
[2023-01-13] MEDS ORDERED: DEXTROSE (50%) 50ML SYRG IV PRN (15:45)
[2023-01-13] MEDS: ACCU-CHEK COMFORT CURVE STRIP VI SCH ×2 (17:00→22:00)
[2023-01-13] MEDS: SODIUM CHLORIDE 0.9% 1,000 ML IV SCH (19:36)
[2023-01-13] MEDS: InsuLIN REG 1unit/0.01ml Soln (100units/ml) SC SCH ×2 (19:39→22:00)
[2023-01-13] MEDS: CEFEPIME 2 GM in SODIUM CHL 0.9% 50 ML IV SCH (22:00)
[2023-01-13] MEDS ORDERED: CEFEPIME 1GM/ 50ML 50 ML IV ONE (22:57)
[2023-01-14] MEDS ORDERED: VANCOMYCIN 750mg/250ml 250 ML IV SCH
[2023-01-14] MEDS ORDERED: CEFEPIME 1GM/ 50ML 50 ML IV ONE ×2 (00:35→06:54)
[2023-01-14] MEDS ORDERED: VANCOMYCIN PER PHARMACY 0 MG IV SCH (02:15)
[2023-01-14] MEDS ORDERED: VANCOMYCIN 1GM/250ML 250 ML IV ONE (02:30)
[2023-01-14 03:17] LABS: Urine Bacteria FEW /hpf (None Seen); Urine Blood Negative /uL (Negative); Urine Mucus FEW (None Seen); Urine Specific Gravity 1.029 (1.001-1.035); Urine WBC <1 /hpf (0 - 5)
[2023-01-14] MEDS: CEFEPIME 2 GM in SODIUM CHL 0.9% 50 ML IV SCH ×3 (06:00→21:39)
[2023-01-14] MEDS: SODIUM CHLORIDE 0.9% 1,000 ML IV SCH ×2 (06:03→21:39)
[2023-01-14 06:28] LABS: Basophils # (auto) 0 10 ^3/uL (0-0.2); Basophils % (auto) 0.5 % (0.0-2.0); Eosinophils # (auto) 0.2 10 ^3/uL (0-0.8); Eosinophils % (auto) 3.4 % (0.0-7.0); Hematocrit 32.3 % (36.0-46.0); Hemoglobin 10.8 g/dL (12.2-16.2); Lymphocytes # (auto) 2.9 10 ^3/uL (0.4-5.4); Lymphocytes % (auto) 41.3 % (10.0-50.0); Mean Corpuscular Hemoglobin 29.2 pg (28.0-32.0); Mean Corpuscular Hgb Conc. 33.4 g/dL (32.0-36.0); Mean Corpuscular Volume 87.5 fL (80.0-100.0); Monocytes # (auto) 0.4 10 ^3/uL (0-1.3); Monocytes % (auto) 5.8 % (0.0-12.0); Neutrophils # (auto) 3.5 10 ^3/uL (1.6-8.6); Nucleated Red Blood Cells % 0.1 %; Red Blood Cells 3.69 10^6/uL (4.0-5.20); Red Cell Distribution Width 17.6 % (11.8-14.3); White Blood Cell 7.1 10^3/uL (4.4-10.8)
[2023-01-14 06:53] LABS: Albumin 3.5 g/dL (3.4-5.0); Calcium 9.1 mg/dL (8.5-10.1); Potassium 3.9 mmol/L (3.5-5.1)
[2023-01-14 06:57] LABS: BUN/Creatinine Ratio 20.7 (10.0-20.0); Bilirubin, Total 0.4 mg/dL (0.2-1.0); Total Protein 8.2 g/dL (6.4-8.2)
[2023-01-14] MEDS: ACCU-CHEK COMFORT CURVE STRIP VI SCH ×4 (07:12→21:39)
[2023-01-14] MEDS: InsuLIN REG 1unit/0.01ml Soln (100units/ml) SC SCH ×4 (07:13→21:40)
[2023-01-14] MEDS ORDERED: LIDOCAINE 1% HCL (LOCAL ANESTH.) INJ 20ML MDV ONE (09:20)
[2023-01-14] MEDS ORDERED: BUPIVACAINE 0.25% INJ 50ML VIAL ONE (09:20)
[2023-01-14] MEDS ORDERED: MIDAZOLAM HCL 2MG/2ML 2ml VIAL (1mg/ml) ONE (09:30)
[2023-01-14] MEDS ORDERED: HYDROmorphone HCL 2 MG/ML VL/or syr IV PRN ×2 (09:30)
[2023-01-14] MEDS ORDERED: SODIUM CHLORIDE LOCK 10 ML ONE (09:30)
[2023-01-14] MEDS ORDERED: MORPHINE SULFATE INJ 2 MG/ml SYRG IV PRN (09:30)
[2023-01-14] MEDS ORDERED: ONDANSETRON HCL 4 MG/2 ML VIAL ONE (09:30)
[2023-01-14] MEDS ORDERED: METOCLOPRAMIDE HCL 5MG/ml INJ 2ml VIAL IV PRN (09:30)
[2023-01-14] MEDS ORDERED: ACCU-CHEK COMFORT CURVE STRIP VI ONE (09:30)
[2023-01-14] MEDS ORDERED: fentaNYL CITRATE 100 MCG/2 ML VL ONE (09:30)
[2023-01-14] MEDS ORDERED: PROPOFOL 10 MG/ML 20 ML IV ONE (09:30)
[2023-01-14 09:40] LABS: INR 0.95 (0.9-1.15)
[2023-01-14] MEDS: ENOXAPARIN SOD 40 MG/0.4 ML SYRINGE SC SCH (10:00)
[2023-01-14] MEDS: ASPirin-EC 81 mg tab PO SCH (10:00)
[2023-01-14] MEDS: NIFEdipine ER 30 MG TAB PO SCH (10:00)
[2023-01-14] MEDS: ISOSORBIDE MONONITRATE ER 60 MG TAB PO SCH (10:00)
[2023-01-14] MEDS ORDERED: PANTOPRAZOLE 40 MG TAB PO SCH (10:00)
[2023-01-14] MEDS: CLOPIDOGREL BISULFATE 75 MG TAB PO SCH (10:00)
[2023-01-14] MEDS ORDERED: METF-372 PO (14:07)
[2023-01-14] MEDS ORDERED: MONT-8 PO (14:07)
[2023-01-14] MEDS ORDERED: GABA300C10 PO (14:07)
[2023-01-14] MEDS ORDERED: LATA0.0019 EACHEYE (14:07)
[2023-01-14] MEDS ORDERED: METH2.5T PO (14:07)
[2023-01-14] MEDS ORDERED: DULA3INJ SC (14:07)
[2023-01-14] MEDS ORDERED: LOSA-39 PO (14:07)
[2023-01-14] MEDS ORDERED: FOLI1TAB6 PO (14:07)
[2023-01-14] MEDS: MORPHINE SULFATE INJ 2 MG/ml SYRG IV PRN ×3 (14:19→22:57)
[2023-01-14 17:00] VITALS: BP 157/47
[2023-01-14] MEDS: VANCOMYCIN 1GM/250ML 250 ML IV SCH (17:00)
[2023-01-14] MEDS ORDERED: cloNIDine HCL 0.1 MG TAB PO PRN (19:15)
[2023-01-14 22:00] VITALS: BP 181/60
[2023-01-14] MEDS ORDERED: hydrALAZINE HCL 20 MG/ML VL IV PRN (22:45)
[2023-01-14] MEDS ORDERED: HYDROcodone-ACET 5/325MG TAB PO PRN (22:45)
[2023-01-15] MEDS: MORPHINE SULFATE INJ 2 MG/ml SYRG IV PRN ×4 (03:17→21:28)
[2023-01-15 04:42] LABS: Albumin 3.2 g/dL (3.4-5.0); BUN/Creatinine Ratio 16.7 (10.0-20.0); Calcium 8.8 mg/dL (8.5-10.1); Potassium 3.7 mmol/L (3.5-5.1)
[2023-01-15 04:50] VITALS: BP 111/54
[2023-01-15] MEDS: VANCOMYCIN 1GM/250ML 250 ML IV SCH ×2 (05:00→17:27)
[2023-01-15] MEDS: CEFEPIME 2 GM in SODIUM CHL 0.9% 50 ML IV SCH ×3 (06:18→21:37)
[2023-01-15] MEDS: ACCU-CHEK COMFORT CURVE STRIP VI SCH ×4 (06:19→21:37)
[2023-01-15] MEDS: InsuLIN REG 1unit/0.01ml Soln (100units/ml) SC SCH ×4 (06:20→21:38)
[2023-01-15 08:00] VITALS: BP 152/50
[2023-01-15 09:00] VITALS: BP 152/50
[2023-01-15] MEDS: SODIUM CHLORIDE 0.9% 1,000 ML IV SCH (10:39)
[2023-01-15] MEDS: CLOPIDOGREL BISULFATE 75 MG TAB PO SCH (11:03)
[2023-01-15] MEDS: ASPirin-EC 81 mg tab PO SCH (11:03)
[2023-01-15] MEDS: ISOSORBIDE MONONITRATE ER 60 MG TAB PO SCH (11:03)
[2023-01-15] MEDS: NIFEdipine ER 30 MG TAB PO SCH (11:04)
[2023-01-15] MEDS: ENOXAPARIN SOD 40 MG/0.4 ML SYRINGE SC SCH (11:09)
[2023-01-15] MEDS: HYDROcodone-ACET 10/325MG TAB PO PRN ×3 (12:45→23:05)
[2023-01-15 13:00] VITALS: BP 144/53
[2023-01-15 16:43] VITALS: BP 131/49
[2023-01-15 22:00] VITALS: BP 137/44
[2023-01-16] MEDS: SODIUM CHLORIDE 0.9% 1,000 ML IV SCH ×2 (00:57→15:15)
[2023-01-16] MEDS: HYDROcodone-ACET 10/325MG TAB PO PRN (03:01)
[2023-01-16 05:00] VITALS: BP 125/36
[2023-01-16] MEDS: VANCOMYCIN 1GM/250ML 250 ML IV SCH ×2 (05:02→17:00)
[2023-01-16] MEDS: CEFEPIME 2 GM in SODIUM CHL 0.9% 50 ML IV SCH ×2 (06:15→15:43)
[2023-01-16] MEDS: ACCU-CHEK COMFORT CURVE STRIP VI SCH ×3 (06:15→17:00)
[2023-01-16] MEDS: InsuLIN REG 1unit/0.01ml Soln (100units/ml) SC SCH ×3 (06:22→18:28)
[2023-01-16] MEDS: MORPHINE SULFATE INJ 2 MG/ml SYRG IV PRN ×4 (06:25→19:23)
[2023-01-16 09:00] VITALS: BP 139/45
[2023-01-16] MEDS: ASPirin-EC 81 mg tab PO SCH (10:03)
[2023-01-16] MEDS: ENOXAPARIN SOD 40 MG/0.4 ML SYRINGE SC SCH (10:03)
[2023-01-16] MEDS: NIFEdipine ER 30 MG TAB PO SCH (10:04)
[2023-01-16] MEDS: CLOPIDOGREL BISULFATE 75 MG TAB PO SCH (10:05)
[2023-01-16] MEDS: ISOSORBIDE MONONITRATE ER 60 MG TAB PO SCH (10:06)
[2023-01-16 13:00] VITALS: BP 143/48
[2023-01-16] MEDS ORDERED: LIDOCAINE 1% (LOCAL ANESTH.) PF 5ml SDV ID ONE (14:00)
[2023-01-16 16:45] VITALS: BP 143/46
[2023-01-16 19:53] VITALS: BP 122/51
[2023-01-16] MEDS ORDERED: SODIUM CHLOR 0.9% PF (SALINE LOCK) 10ML VIAL/SYR IV SCH (22:00)
== END 2023-01-16 19:50 | disposition home or self-care (01) | DRG 952 ==
LOC: ER 10:54 → OVERFLOW 15:44 → WEST WING 01-14 12:04
PROVIDERS: ADMIT Nurse Practitioner Family; ATTEND Internal Medicine
PROC: 0Y9N0ZZ Drainage of Left Foot, Open Approach (ICD-10-PCS; 2023-01-14)
PROC: 0L9W0ZZ Drainage of Left Foot Tendon, Open Approach (ICD-10-PCS; 2023-01-14)
PROC: 02HV33Z Insertion of Infusion Device into Superior Vena Cava, Percutaneous Approach (ICD-10-PCS; principal; 2023-01-16)
PROC: B548ZZA Ultrasonography of Superior Vena Cava, Guidance (ICD-10-PCS; 2023-01-16)
DX: L03.116 Cellulitis of left lower limb (principal); I11.0 Hypertensive heart disease with heart failure; I50.9 Heart failure, unspecified; D64.9 Anemia, unspecified; E78.5 Hyperlipidemia, unspecified; E11.9 Type 2 diabetes mellitus without complications; L02.612 Cutaneous abscess of left foot; I25.10 Atherosclerotic heart disease of native coronary artery without angina pectoris; L02.619 Cutaneous abscess of unspecified foot; Z95.1 Presence of aortocoronary bypass graft; Z95.5 Presence of coronary angioplasty implant and graft; Z85.42 Personal history of malignant neoplasm of other parts of uterus; Z90.710 Acquired absence of both cervix and uterus; Z88.6 Allergy status to analgesic agent; Z88.8 Allergy status to other drugs, medicaments and biological substances; I25.2 Old myocardial infarction
CPT/HCPCS: 36415; 36569; 71045; 73701; 80053; 80069; 80202; 81001; 82962; 83605; 85025; 85610; 85652; 85730; 86141; 87040; 87075; 87205; 96365; 96367; G0378; J1815; J2001; J2250; J2405; J2543; J2704; J3490